=== PATIENT | male | born 1970 | race Caucasian/White ===

== ENCOUNTER 2017-03-17 20:31 | Emergency (ER) | payer OTHER ==
[~2017-03-17] VITALS: Ht 177.8 cm; Wt 86.2 kg
[2017-03-17] MEDS ORDERED: CATAFLAN (20:46)
[2017-03-17] MEDS ORDERED: SOMA250 MG (20:46)
== END 2017-03-17 22:40 | disposition home or self-care (01) ==
LOC: ER 20:31
DX: B34.9 Viral infection, unspecified (principal)

== ENCOUNTER 2017-10-13 21:24 | Emergency (ER) | payer OTHER ==
[~2017-10-13] VITALS: Ht 177.8 cm; Wt 86.2 kg
== END 2017-10-13 23:38 | disposition home or self-care (01) ==
LOC: ER 21:24
DX: H10.89 Other conjunctivitis (principal)

== ENCOUNTER 2018-12-14 10:10 | Outpatient (CLI) | payer OTHER ==
[~2018-12-14 10:10] MED LIST: CATAFLAN; SOMA250 MG
== END 2018-12-14 10:19 | disposition home or self-care (01) ==
LOC: TOM 10:10
DX: M54.5 Low back pain (principal); Z01.810 Encounter for preprocedural cardiovascular examination; E03.8 Other specified hypothyroidism; I10 Essential (primary) hypertension; E78.49 Other hyperlipidemia; E11.51 Type 2 diabetes mellitus with diabetic peripheral angiopathy without gangrene; E66.8 Other obesity; E55.9 Vitamin D deficiency, unspecified; G62.89 Other specified polyneuropathies; F17.200 Nicotine dependence, unspecified, uncomplicated

== ENCOUNTER 2021-06-04 06:55 | Day surgery (SDC) | payer OTHER | END 2021-06-04 13:50 | disposition home or self-care (01) | LOC: CIR.AMB 06:55 | PROVIDERS: ATTEND Colon & Rectal Surgery | DX: K64.2 Third degree hemorrhoids (principal); K60.1 Chronic anal fissure; Z20.822 Contact with and (suspected) exposure to COVID-19; Z71.6 Tobacco abuse counseling; F17.210 Nicotine dependence, cigarettes, uncomplicated ==

== ENCOUNTER 2024-01-18 08:24 | Outpatient (CLI) | payer OTHER | END 2024-01-18 08:30 | disposition home or self-care (01) | LOC: SONOGRAMA 08:24 | PROVIDERS: ATTEND Internal Medicine | DX: R10.9 Unspecified abdominal pain (principal) ==

== ENCOUNTER 2024-12-19 15:13 | Outpatient (CLI) | payer OTHER | END 2024-12-19 15:19 | disposition home or self-care (01) | LOC: RAD 15:13 | PROVIDERS: ATTEND Physical Medicine & Rehabilitation | DX: R06.02 Shortness of breath (principal) ==